=== PATIENT | female | born 1975 | race Caucasian/White ===

== ENCOUNTER 2018-10-18 10:30 | Outpatient (CLI) | payer OTHER ==
[2018-10-18] MEDS ORDERED: FLAGYL500MG PO (14:05)
[2018-10-18] MEDS ORDERED: CIPRO500 MG PO (14:05)
== END 2018-10-18 10:40 | disposition home or self-care (01) ==
LOC: MAMO-SONO 10:30
DX: N92.0 Excessive and frequent menstruation with regular cycle (principal); Z12.31 Encounter for screening mammogram for malignant neoplasm of breast; Z87.898 Personal history of other specified conditions

== ENCOUNTER 2018-10-18 12:41 | Emergency (ER) | payer OTHER ==
[~2018-10-18] VITALS: Ht 172.7 cm; Wt 76.7 kg
[2018-10-18] MEDS ORDERED: CIPRO500 MG PO (14:05)
[2018-10-18] MEDS ORDERED: FLAGYL500MG PO (14:05)
== END 2018-10-18 14:15 | disposition home or self-care (01) ==
LOC: ER 12:41
DX: L02.31 Cutaneous abscess of buttock (principal)

== ENCOUNTER 2018-10-29 10:54 | Outpatient (CLI) | payer OTHER ==
[~2018-10-29 10:54] MED LIST: CIPRO500 MG PO; FLAGYL500MG PO
== END 2018-10-29 11:01 | disposition home or self-care (01) ==
LOC: MRI 10:54
DX: L02.31 Cutaneous abscess of buttock (principal)
CPT/HCPCS: 72196